=== PATIENT | female | born 1990 | race Caucasian/White ===

== ENCOUNTER 2017-04-15 16:55 | Emergency (ER) | payer BC ==
[2017-04-15 18:07] VITALS: BP 120/67
--- NOTE | 2017-04-15 18:29 | UC ---
Lower Extremity/Ankle HPI - HPI Summary HPI Summary: Patient injured her right ankle two months ago, she is denying pain at this time , but tried on her ski bot and it was very snug. no swelling noted, no bruising , patient has full ROM - History of Current Complaint Chief Complaint: UCLowerExtremity Stated Complaint: RIGHT ANKLE PAIN X 2 MONTHS Time Seen by Provider: 04/15/17 18:20 Hx Obtained From: Patient Hx Last Menstrual Period: 04/11 ?: No Onset/Duration: Sudden Onset, Lasting Weeks Severity Initially: Mild Severity Currently: None Aggravating Factor(s): Nothing Able to Bear Weight: Yes - Allergies/Home Medications Allergies/Adverse Reactions: Allergies Allergy/AdvReac Type Severity Reaction Status Date / Time No Known Allergies Allergy Verified 04/15/17 18:07 Home Medications: Home Medications O C 1 tab PO QAM 04/15/17 [History Confirmed 04/15/17] PMH/Surg Hx/FS Hx/Imm Hx Previously Healthy: Yes - Surgical History Surgical History: None - Family History Known Family History: Positive: Hypertension - Social History Alcohol Use: Occasionally Substance Use Type: None Smoking Status (MU): Never Smoked Tobacco Review of Systems Constitutional: Negative Skin: Negative Eyes: Negative ENT: Negative Respiratory: Negative Cardiovascular: Negative Gastrointestinal: Negative Genitourinary: Negative Motor: Negative Neurovascular: Negative Musculoskeletal: Negative, Edema Neurological: Negative Psychological: Negative Is Patient Immunocompromised?: No All Other Systems Reviewed And Are Negative: Yes Physical Exam Triage Information Reviewed: Yes Appearance: Well-Appearing, No Pain Distress, Well-Nourished Vital Signs: Initial Vital Signs Temp 98.2 F 04/15/17 17:59 Pulse 78 04/15/17 17:59 Resp 18 04/15/17 17:59 BP 120/67 04/15/17 17:59 Vital Signs Reviewed: Yes Eye Exam: Normal ENT Exam: Normal ENT: Positive: Pharynx normal, Pharyngeal erythema, TMs normal Dental Exam: Normal Neck exam: Normal Neck: Positive: Supple, Nontender, No Lymphadenopathy Respiratory Exam: Normal Respiratory: Positive: Chest non-tender, Lungs clear, Normal breath sounds Cardiovascular Exam: Normal Cardiovascular: Positive: RRR, No Murmur, Pulses Normal Abdominal Exam: Normal Abdomen Description: Positive: Nontender, No Organomegaly, Soft Bowel Sounds: Positive: Present Musculoskeletal Exam: Normal Musculoskeletal: Positive: Strength Intact, ROM Intact, No Edema Neurological Exam: Normal Psychological Exam: Normal Skin Exam: Normal Lower Extremity Course/Dx - Course Course Of Treatment: hx obtained, exam performed ,meds reviewed, patient refused xray, she states her ski boot doesnt fit that foot anymore and is wondering if there is anything we can give her to reduce any swelling in her foot. educated on warm soaks, ankle exercises and the fact that previous injury can cause the joint to have some permanent issues. - Differential Dx/Diagnosis Differential Diagnosis/HQI/PQRI: Fracture (Closed), Sprain, Strain Provider Diagnoses: ankle swelling Discharge - Discharge Plan Condition: Stable Disposition: HOME Patient Education Materials: Arthralgia (ED) Additional Instructions: 1. warm water soaks 2. Range of Motion exercises 3. Ayo wrap or compression stockings may help 4. Elevate foot at rest.
== END 2017-04-15 18:35 | disposition home or self-care (01) ==
LOC: UCCORT 16:55
DX: M25.471 Effusion, right ankle (principal)
CPT/HCPCS: 99201; G0463

== ENCOUNTER 2017-12-22 17:46 | Emergency (ER) | payer BC ==
[2017-12-22 18:41] VITALS: BP 121/74
== END 2017-12-22 19:49 | disposition left against medical advice (07) ==
LOC: UCCORT 17:46
DX: S01.311A Laceration without foreign body of right ear, initial encounter (principal); X58.XXXA Exposure to other specified factors, initial encounter; Y92.9 Unspecified place or not applicable; Z53.21 Procedure and treatment not carried out due to patient leaving prior to being seen by health care provider